=== PATIENT | male | born 1990 | race Hispanic/Latino ===

== ENCOUNTER 2017-06-16 12:04 | Emergency (ER) | payer OTHER ==
[~2017-06-16] VITALS: Ht 170.2 cm; Wt 104.3 kg
== END 2017-06-16 13:30 | disposition home or self-care (01) ==
LOC: FSED 12:04
DX: S00.83XA Contusion of other part of head, initial encounter (principal); Y04.8XXA Assault by other bodily force, initial encounter; Y93.89 Activity, other specified; Y99.0 Civilian activity done for income or pay
CPT/HCPCS: 99282

== ENCOUNTER 2017-07-13 07:55 | Emergency (ER) | payer OTHER ==
[~2017-07-13] VITALS: Ht 170.2 cm; Wt 104.3 kg
--- OUTSIDE RECORDS SUMMARY | 2017-07-13 07:58 | XMS REPORT | Continuity of Care Document ---
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 No 06/16/17 12:21pm Do you have a Directive to Physician? No 06/16/17 12:21pm Do you have a Medical Power of Quick Mixer Operator? No 06/16/17 12:21pm Do you have an out of hospital Do Not Resuscitate Order? No 06/16/17 12:21pm Do you have any special needs we should be aware of? No 06/16/17 12:21pm Do you have a support person here with you today? Yes 06/16/17 12:21pm Did patient receive Notice of Privacy Practices? Yes 06/16/17 12:21pm Did patient receive patient rights and responsibilities? Yes 06/16/17 12:21pm Problems No problem information available. Medications No medication information available. Social History Smoking Status Start Date Stop Date Former smoker Hospital Discharge Instructions No hospital discharge instruction information available. Plan of Care Discharge Date 06/16/17 1:30pm Disposition HOME, SELF-CARE Condition at Discharge Stable Instructions/Education Provided Concussion/Head Injury - Adult Forms Provided Work/School Excuse Prescriptions See Medication Section Functional Status No functional status information available. Allergies, Adverse Reactions, Alerts No known allergies. Immunizations No immunization information available. Vital Signs Acute Vital Signs Vital Response Date/Time Height 5 ft 7 in 06/16/2017 12:50pm Weight 230 lb 06/16/2017 12:50pm Body Mass Index 36.0 kg/m^2 06/16/2017 12:50pm Results No relevant diagnostic test, laboratory data and/or discharge summary information available. Procedures No procedure information available. Encounters Encounter Location Arrival/Admit Date Discharge/Depart Date Attending Provider Departed Emergency Room [facility] 06/16/17 12:04pm 06/16 1:30pm GREG BOWEN MD
[2017-07-13 09:46] VITALS: BP 130/78
== END 2017-07-13 09:20 | disposition home or self-care (01) ==
LOC: FSED 07:55
DX: Z77.21 Contact with and (suspected) exposure to potentially hazardous body fluids (principal); Y99.0 Civilian activity done for income or pay
CPT/HCPCS: 99283